=== PATIENT | female | born 1995 | race Caucasian/White ===

== ENCOUNTER 2017-11-24 13:39 | Emergency (ER) | payer OTHER ==
--- NOTE | 2017-11-24 13:55 | EDPHY ---
H & P Stated Complaint: Generalised abdo pain since Saturday. Source: Patient Exam Limitations: No limitations - Personal History LMP (Females 10-55): Now Current Tetanus Diphtheria and Acellular Pertussis (TDAP): Yes - Medical/Surgical History Hx Asthma: No Hx Chronic Respiratory Disease: No Hx Diabetes: No Hx Cardiac Disease: No Hx Renal Disease: No Hx Cirrhosis: No Hx Alcoholism: No Hx HIV/AIDS: No Hx Splenectomy or Spleen Trauma: No Other PMH: Denies - Social History Smoking Status: Never smoked <Krystina Bbo - Last Filed: 11/24/17 16:57> <ArashNagi Jong - Last Filed: 11/24/17 17:57> Time Seen by Provider: 11/24/17 13:55 HPI/ROS: HPI: This is a 22-year-old female who presents with Chief Complaint: Generalized abdominal pain since Saturday Location: Generalized abdomen Quality: Pain Duration: Since Saturday Signs and Symptoms: no fever, + nausea, no vomiting, no hematemesis, no blood in stool, no abdominal bloating, no diarrhea, no back pain, no urinary symptoms , no vaginal discharge, no indigestion, no chest pain, no shortness of breath Timing: Worsening Severity: Moderate Context: Patient is generally healthy, Currently menstruating, presents from urgent care with concerns of appendicitis. Complains of periumbilical abdominal pain since Saturday, approximately 3 days. Today it is a little bit more towards the right lower quadrant. Pain worsens with movement and improves with rest. Reports nausea but no vomiting/fever/diarrhea/urinary symptoms. No prior history of ovarian cyst. Had bowel movement today. Passing flatus. Modifying Factors: None Comment: ROS: see HPI Constitutional: No fever, no chills, no weight loss Eyes: No blurred vision Respiratory: No shortness of breath, no cough Cardiovascular: No chest pain, no palpitations Gastrointestinal: + nausea, no vomiting, no diarrhea, no hematemesis, no blood in stool Genitourinary: No dysuria, no blood in urine Extremities: No myalgias, no edema Neurologic: No weakness, no numbness Skin: No rashes, no petechiae Hematologic: No bruising, no bleeding MEDICAL/SURGICAL/SOCIAL HISTORY: Medical history: Generally healthy. Does not take any regular medications. Surgical history: Denies Social history: Student. CONSTITUTIONAL: Well-appearing young adult white female, awake and alert, no obvious distress HEENT: Atraumatic and normocephalic, PERRL, EOMI. Tympanic membranes clear. Oropharynx clear, no exudate and moist pink mucosa. Airway patent. No lymphadenopathy. No meningismus. Cardiovascular: Normal S1/S2, regular rate, regular rhythm, without murmur rub or gallop. PULMONARY/CHEST: Symmetrical and nontender. Clear to auscultation bilaterally. Good air movement. No accessory muscle usage. ABDOMEN: Soft, nondistended, moderate periumbilical and right lower quadrant tenderness, no rebound, no guarding, no peritoneal signs, no masses or organomegaly. No CVAT. EXTREMITIES: 2/2 pulses, strength 5/5, no deformities, no clubbing, no cyanosis or edema. NEUROLOGICAL: no focal neuro deficits. GCS 15. SKIN: Warm and dry, no erythema. no rash. Good capillary refill. (Krystina Bob) Constitutional: Initial Vital Signs Temperature (C) 36.7 C 11/24/17 13:44 Heart Rate 73 11/24/17 13:44 Respiratory Rate 18 11/24/17 13:44 Blood Pressure 110/63 11/24/17 13:44 O2 Sat (%) 96 11/24/17 13:44 O2 Delivery Mode Room Air Allergies/Adverse Reactions: No Known Allergies Allergy (Unverified 11/24/17 13:47) Home Medications: Medication Instructions Recorded NK [No Known Home Meds] 11/24/17 Medical Decision Making <Krystina Bob - Last Filed: 11/24/17 16:57> - Diagnostics Imaging: Discussed imaging studies w/ bingo caller Radiologist <Nagi Antoine - Last Filed: 11/24/17 17:57> - Diagnostics Imaging Results: Imaging Impressions Abdomen Ultrasound 11/24/17 14:10 Impression: Nondiagnostic assessment of the appendix. If there is further clinical concern regarding the patient's right lower quadrant pain, contrast-enhanced CT imaging could be considered. Findings were discussed with Krystina Bob PA-C at 15:23, on 11/24/2017. Pelvic/Renal Ultrasound 11/24/17 14:10 Impression: 1. Mild complex fluid in the lower uterine segment endometrial canal and the endocervical canal (but no cervical motion tenderness). 2. Mild bilateral ovarian enlargement with numerous tiny peripherally-situated follicles (but no reported clinical evidence of PCOS). There is no dominant adnexal mass, torsion, or free fluid. Findings were discussed with Krystina Bob PA-C at 15:25, on 11/24/2017. . ED Course/Re-evaluation: Urinalysis, labs, IV fluids, IV medications, pelvic ultrasound, limited ultrasound ordered Vital signs reviewed upon arrival; no fever. Given 1 L normal saline, IV morphine 4 mg 1458: urinalysis shows blood consistent with menses; no signs of infection. Labs show no leukocytosis/elevated LFTs/JANETH/anemia 1525: Called by radiologist who advised that limited ultrasound shows no clear signs of appendicitis including free fluid. Unable to fully visualize appendix though. Pelvic ultrasound shows findings consistent with PCOS. 1530: Discussed findings with patient. Patient reports that pain is mild-to- moderate; nonradiating in nature. Politely declined morphine upon arrival as did not believe that pain warranted such medication. Discussed options of home with observation vs. CT A/P scan. Patient prefers to have CT abdomen and pelvis scan ordered to further evaluate for appendicitis. 1700: End of shift. Signed over to Dr. Antoine pending CT A/P scan results. If CT scan does not show appendicitis, discharge home. This patient was seen under the supervision of my secondary supervising physician. I evaluated care for this patient independently. Discussed this patient with Dr. Antoine who did not see the patient. (Krystina Bob) Differential Diagnosis: Abdominal pain in a female including but not limited to ovarian cyst, pelvic inflammatory disease, ovarian torsion, urinary tract infection, and appendicitis. (Krystina Bob) Other Provider: PHYSICIAN DOCUMENTATION: The patient was evaluated and managed by the Physician Knuckler and myself. I have reviewed the chart and agree with the findings and plan of care as documented. In addition, I examined the patient myself at 1725. History confirmed as abdominal pain since Saturday. Physical findings as follows: No rebound or guarding. No tenderness over McBurney's point on my exam. CT reviewed with Dr. Mcdonough at this time. She does have multiple ovarian follicles, it is possible that this is causing her pain, does not appear to have evidence for acute surgical process at this time. 1739: Discussed in detail with the patient and family. Emphasize that although we do not have a definitive diagnosis I think the most reasonable course of action is symptomatic treatment and outpatient follow-up. We reviewed the small ovarian follicles, that is probably a less likely reason for her symptoms. She states she is comfortable going home and really only has about 1/10 pain now. I am the secondary supervising physician. (Nagi Antoine) - Data Points Laboratory Results: Laboratory Results 11/24/17 14:00 11/24/17 14:00 11/24/17 11/24/17 11/24/17 14:00 14:00 13:58 WBC 7.11 10^3/uL 10^3/uL (3.80-9.50) RBC 5.14 10^6/uL 10^6/uL (4.18-5.33) Hgb 12.4 g/dL L g/dL (12.6-16.3) Hct 39.9 % % (38.0-47.0) MCV 77.6 fL L fL (81.5-99.8) MCH 24.1 pg L pg (27.9-34.1) MCHC 31.1 g/dL L g/dL (32.4-36.7) RDW 16.7 % H % (11.5-15.2) Plt Count 325 10^3/uL 10^3/uL (150-400) MPV 10.5 fL fL (8.7-11.7) Neut % (Auto) 37.0 % L % (39.3-74.2) Lymph % (Auto) 41.8 % % (15.0-45.0) [place] % (Auto) 10.0 % % (4.5-13.0) Eos % (Auto) 10.0 % H % (0.6-7.6) Baso % (Auto) 1.1 % % (0.3-1.7) Nucleat RBC Rel Count 0.0 % % (0.0-0.2) Absolute Neuts (auto) 2.63 10^3/uL 10^3/uL (1.70-6.50) Absolute Lymphs (auto) 2.97 10^3/uL 10^3/uL (1.00-3.00) Absolute Monos (auto) 0.71 10^3/uL 10^3/uL (0.30-0.80) Absolute Eos (auto) 0.71 10^3/uL H 10^3/uL (0.03-0.40) Absolute Basos (auto) 0.08 10^3/uL 10^3/uL (0.02-0.10) Absolute Nucleated RBC 0.00 10^3/uL 10^3/uL (0-0.01) Immature Gran % 0.1 % % (0.0-1.1) Immature Gran # 0.01 10^3/uL 10^3/uL (0.00-0.10) Sodium 142 mEq/L mEq/L (135-145) Potassium 4.1 mEq/L mEq/L (3.5-5.2) Chloride 107 mEq/L mEq/L (97-110) Carbon Dioxide 25 mEq/l mEq/l (22-31) Anion Gap 10 mEq/L mEq/L (8-16) BUN 11 mg/dL mg/dL (7-23) Creatinine 0.8 mg/dL mg/dL (0.6-1.0) Estimated GFR > 60 Glucose 71 mg/dL mg/dL (70-100) Calcium 9.7 mg/dL mg/dL (8.5-10.4) Urine Color PALE YELLOW Urine Appearance CLEAR Urine pH 7.0 (5.0-7.5) Ur Specific [place] 1.005 (1.002-1.030) Urine Protein NEGATIVE (NEGATIVE) Urine Ketones NEGATIVE (NEGATIVE) Urine Blood 3+ H (NEGATIVE) Urine Nitrate NEGATIVE (NEGATIVE) Urine Bilirubin NEGATIVE (NEGATIVE) Urine Urobilinogen NEGATIVE EU EU (0.2-1.0) Ur Leukocyte Esterase NEGATIVE (NEGATIVE) Urine RBC 1-3 /hpf /hpf (0-3) Urine WBC NONE SEEN /hpf /hpf (0-3) Ur Epithelial Cells TRACE /lpf /lpf (NONE-1+) Urine Glucose NEGATIVE (NEGATIVE) Urine Test 11/24/17 13:58 WBC RBC Hgb Hct MCV MCH MCHC RDW Plt Count MPV Neut % (Auto) Lymph % (Auto) [place] % (Auto) Eos % (Auto) Baso % (Auto) Nucleat RBC Rel Count Absolute Neuts (auto) Absolute Lymphs (auto) Absolute Monos (auto) Absolute Eos (auto) Absolute Basos (auto) Absolute Nucleated RBC Immature Gran % Immature Gran # Sodium Potassium Chloride Carbon Dioxide Anion Gap BUN Creatinine Estimated GFR Glucose Calcium Urine Color Urine Appearance Urine pH Ur Specific [place] Urine Protein Urine Ketones Urine Blood Urine Nitrate Urine Bilirubin Urine Urobilinogen Ur Leukocyte Esterase Urine RBC Urine WBC Ur Epithelial Cells Urine Glucose Urine Test NEGATIVE Medications Given: Discontinued Medications Sodium Chloride (Ns) 1,000 mls @ 0 mls/hr IV EDNOW ONE; Wide Open PRN Reason: Protocol Stop: 11/24/17 14:10 Last Admin: 11/24/17 14:13 Dose: 1,000 mls Morphine Sulfate (Morphine) 4 mg IVP EDNOW ONE Stop: 11/24/17 14:11 Last Admin: 11/24/17 14:14 Dose: Not Given Departure <Krystina Bob - Last Filed: 11/24/17 16:57> <Nagi Antoine - Last Filed: 11/24/17 17:57> - Departure Disposition: Home, Routine, Self-Care Clinical Impression: Acute periumbilical pain Condition: Good Instructions: Acute Abdominal Pain (ED) Additional Instructions: Please return if you get worsening pain, fevers, vomiting, not continuing to be better in the next 12 hr. Okay to take oral ibuprofen 600 mg every 8 hr the next 3-4 days as needed for pain. Referrals: Lennox Horne MD [Medical Doctor] - 2-3 days, if not improved
[2017-11-24] MEDS ORDERED: NS 1,000 ML IV ONE (14:09)
[2017-11-24 14:17] LABS: PLATELET COUNT 325 10^3/uL (150-400)
[2017-11-24] MEDS ORDERED: IOPAMIDOL (ISOVUE-300) 100 ML BTL ONE (16:18)
[2017-11-24 17:48] VITALS: BP 124/78
== END 2017-11-24 17:50 | disposition home or self-care (01) ==
DX: R10.33 Periumbilical pain (principal); E86.9 Volume depletion, unspecified
CPT/HCPCS: Q9967